=== PATIENT | female | born 1975 | race Hispanic/Latino ===

== ENCOUNTER 2017-12-08 06:27 | Day surgery (SDC) | payer BC ==
[2017-12-07 15:44] VITALS: BP 115/59
[2017-12-07 15:49] LABS: BASOPHILS % (AUTO) 0.6 % (0.0-5.0); EOSINOPHILS % (AUTO) 0.6 % (0.0-8.0); HEMATOCRIT 40.2 % (36-48); LYMPHOCYTES % (AUTO) 26.3 % (21.0-51.0); MEAN CORPUSCULAR HEMOGLOBIN 30.6 pg (27.0-33.0); MEAN CORPUSCULAR HGB CONC 34.8 g/dL (32.0-36.0); MEAN CORPUSCULAR VOLUME 87.8 fL (79-99); MONOCYTES % (AUTO) 4.7 % (3.0-13.0); NEUTROPHILS % (AUTO) 67.8 % (40.0-77.0); PLATELET COUNT (AUTO) 349 K/uL (130-400); RED BLOOD CELL COUNT(AUTO) 4.58 MIL/uL (4.00-5.50); RED CELL DISTRIBUTION WIDTH 12.6 % (11.0-15.5); WHITE BLOOD COUNT (AUTO) 10.3 K/uL (4.8-10.8)
[2017-12-07 15:55] LABS: CREATININE 0.6 mg/dL (0.5-1.5)
[~2017-12-08] VITALS: Ht 165.1 cm; Wt 84.7 kg
[~2017-12-08 06:27] MED LIST: GLYB2.5 PO; LINA1TAB5 PO; LISI10TA7 PO; SIMV10TA6 PO
[2017-12-08] MEDS ORDERED: CEFAZOLIN SODIUM 1 GM VIAL ONE (06:54)
[2017-12-08] MEDS ORDERED: SODIUM CHLORIDE 0.9% 1000ML 1,000 ML IV ONE (06:55)
[2017-12-08 07:05] VITALS: BP 111/70
[2017-12-08] MEDS ORDERED: CEFAZOLIN SODIUM 1 GM VIAL IVP ONE ×2 (07:25→08:00)
[2017-12-08] MEDS ORDERED: PROPOFOL 10 MG/ML 20ML VIAL IV ONE (07:29)
[2017-12-08] MEDS ORDERED: FENTANYL CITRATE PF 50 MCG/1 ML 2ML VIAL ONE (07:29)
[2017-12-08] MEDS ORDERED: MIDAZOLAM HCL 1 MG/ML 2ML VIAL ONE (07:29)
[2017-12-08] MEDS ORDERED: LIDOCAINE HCL MPF 1% 5ML VIAL ONE (07:29)
[2017-12-08] MEDS ORDERED: METHYLERGONOVINE MALEATE 0.2 MG/1 ML ML ONE ×2 (07:45→08:35)
[2017-12-08] MEDS ORDERED: OXYTOCIN 10 USP UNITS/ML ONE (07:48)
[2017-12-08] MEDS ORDERED: LACTATED RINGERS 1000ML 1,000 ML IV SCH (08:00)
[2017-12-08 09:20] VITALS: BP 116/73
[2017-12-08 09:35] VITALS: BP 114/70
[2017-12-08 09:50] VITALS: BP 109/74
== END 2017-12-08 10:12 | disposition home or self-care (01) ==
LOC: DAH 06:27
PROVIDERS: ATTEND Obstetrics & Gynecology
DX: O02.0 Blighted ovum and nonhydatidiform mole (principal); I10 Essential (primary) hypertension; E11.9 Type 2 diabetes mellitus without complications; E78.5 Hyperlipidemia, unspecified; E66.9 Obesity, unspecified; Z79.899 Other long term (current) drug therapy; Z79.84 Long term (current) use of oral hypoglycemic drugs
CPT/HCPCS: 36415; 59812; 80048; 82948; 84702; 85025; 86850; 86900; 86901; A4218; A4510; A4600; A4606; J0690 ×2; J2210 ×2; J2250; J2590; J2704; J3010; J3490; J7030; J7120